=== PATIENT | female | born 1945 | race Caucasian/White ===

== ENCOUNTER → 2016-10-04 | Outpatient (CLI) | payer MEDICARE, MEDICAID ==
[~2016-10-04] MED LIST: ACIPHEX20 MG PO; ALBUTEROL0.83 MG/ML IH; ALDACTONE 25MG25 M1 PO; ALLEGRA ALLERG180 MG PO; ALLOPURINOL100 MG PO; ALPRAZOLAM PO; ALPRAZOLAM0.25 M1 PO; ASPIRIN 32325 MG/TAB PO; ASPIRIN 81M81 MG/TA2 PO; ASPIRIN E.C. 8181 MG PO; ATIVAN 0.50.5 MG/TAB PO; ATORVASTATIN; ATROVENT I0.2 MG/1 M IH; ATROVENT INHALE14 GM IH; AURALGAN EAR DR15 ML OT; BREO IH; CEFTIN 250250 MG/TAB PO; CEFTIN500 MG PO; CEPHALEXIN500 M1 PO; COLACE 100100 MG/CAP PO; COREG 3.123.125 MG/T PO; COREG3.125 MG PO; COREG6.25 MG PO; COZAAR 25MG25 MG/TAB PO; COZAAR 50MG50 MG/TAB PO; CRESTOR5 MG PO; DEXILANT60 MG PO; DIGITEK0.125 MG PO; DIGOXIN0.125 MG PO; DOXEPIN; DOXYCYCLINE 10100 MG PO; DULCOLAX S10 MG/SUPP RC; EAR DROP; EFFIENT10 MG PO; EPLERENONE50 MG PO; ESCITALOPRAM PO; FAMILY PHARMAC0.4 MG PO; FLAGYL500 MG PO; FOLIC ACID 40400 MCG PO; FUROSEMIDE PO; IMDUR 30MG30 MG/TAB PO; INSPRA25 MG PO; IRON325 M1 PO; ISORDIL TITRADO30 MG PO; KLOR-CON M2020 MEQ PO; LANOXIN 0.120.125 MG PO; LANOXIN0.125 MG PO; LASIX 20MG TABL20 MG PO; LASIX 40MG TABL40 MG PO; LEXAPRO20 MG PO; LIPITOR 10MG10 MG PO; LIPITOR 80MG80 MG PO; LIPITOR40 MG PO; LORTAB 5/500 501 TAB PO; MACROBID 1100 MG/CAP PO; MEDI-FIRST ASP325 MG PO; METRONIDAZOLE500 MG PO; MICARDIS 40MG40 MG PO; MICARDIS HCT PO; MICARDIS40 MG PO; MILK OF MA400 MG/52 PO; MIRALAX PA17 GM/Dose PO; MOBIC 7.5MG7.5 MG PO; MOMETASONE FUROA0.1% TP; NEXIUM 40MG40 MG PO; NIASPAN500 MG PO; NITROSTAT0.4 MG/TAB SL; NORCO 325 MG-51 TAB PO; NORCO 325 MG-7.1 TAB; NYSTATIN OR100 MU/ML PO; NYSTATIN POWDER30 GM TP; PERCOCET 325 MG1 TA2 PO; PERCOCET 325 MG1 TAB PO; PLAVIX 75MG TAB75 MG PO; PREDNISONE10 MG PO; PREDNISONE20 MG PO; PREVACID 30MG30 M1 PO; PREVACID 30MG30 MG PO; PRIL40 PO; PRINIVIL2.5 MG PO; PROAIR HFA0.09 MG/AC IH; PROVENTIL0.09 MG/A1 IH; RANEXA 500MG T500 MG PO; REMERON 15M15 MG/TA1 PO; RT SPIRIVA18 MCG IH; SENOKOTXTRA17.2 MG PO; SINGULAIR 110 MG/TAB PO; SINGULAIR10 MG PO; TOPROL PO; TRICOR145 MG PO; TYLENOL 325MG325 MG PO; ULTRAM 50MG TAB50 MG PO; ULTRAM50 MG PO; VASOTEC 2.2.5 MG/TAB PO; VASOTEC10 MG PO; VENTOLIN0.09 MG IH; VITAMIN D1000 IU PO; VYTORIN PO; XANAX .25M0.25 MG/TA PO; XANAX 1MG1 MG PO; XANAX XR1 MG PO; ZESTRIL2.5 MG PO; ZITHROMAX Z PA250 MG PO; ZYLOPRIM 300MG300 MG PO; [UNRECOGNIZED DRUG - REMARK]
== END ==
LOC: COL.RAD 13:55
DX: R13.19 Other dysphagia (principal); M62.89 Other specified disorders of muscle; M25.78 Osteophyte, vertebrae; K21.9 Gastro-esophageal reflux disease without esophagitis; J37.0 Chronic laryngitis

== ENCOUNTER 2016-10-08 14:02 | Emergency (ER) | payer MEDICARE, MEDICAID ==
[2008-10-16 23:26] VITALS: BP 94/48
[~2016-10-08] VITALS: Ht 165.1 cm; Wt 56.4 kg
[~2016-10-08 14:02] MED LIST changes: -MOBIC 7.5MG7.5 MG PO
[2016-10-08 15:24] LABS: VENOUS BLOOD GAS BE 4.8 (-4-4); VENOUS BLOOD GAS SAO2 78.9 % (60-80)
[2016-10-08 15:29] LABS: VENOUS BLOOD GAS SITE VENIPUNCTURE
[2016-10-08 15:35] LABS: BASO % 0.3 % (0.0-2.0); EOS % 0.3 % (0-4.0); GRAN # 8.3 (1.4-6.5); GRAN % 84.6 % (42.2-75.2); LYMPH # 0.7 (1.2-3.4); LYMPH % 7.4 % (20.0-51.0); MEAN CELL VOLUME 97 fl (80.0-100.0); MEAN CORPUSCULAR HGB CONC 34 g/dl (33.0-37.0); MEAN PLATELET VOLUME 10.4 fl (7.4-10.4); MONO # 0.7 (0.1-0.6); PLATELET COUNT 126 K/mm3 (130-400); RED BLOOD COUNT 3.02 M/mm3 (4.10-5.30); REDCELL DISTRIBUTION WIDTH-CV 13.5 % (11.5-14.5); WHITE BLOOD COUNT 9.8 K/mm3 (4.8-10.8)
[2016-10-08 15:38] LABS: ADJUSTED CALCIUM 9.7 mg/dL (8.4-10.2); ALBUMIN 3.3 gm/dL (3.5-5.0); BILIRUBIN,TOTAL 1.2 mg/dL (0.0-1.0); CALCIUM 9.1 mg/dL (8.4-10.2); CREATININE, serum 1.56 mg/dL (0.52-1.25); HEMATOCRIT 29.2 % (37.0-47.0); HEMOGLOBIN 9.8 g/dl (12.5-16.0); MEAN CORPUSCULAR HEMOGLOBIN 32 pg (27.0-31.0); POTASSIUM 3.4 mmol/L (3.4-5.0); TOTAL PROTEIN 6.6 gm/dL (6.4-8.2)
[2016-10-08 15:50] LABS: TROPONIN-I 0.072 ng/mL (0.000-0.034)
[2016-10-08 15:51] LABS: PH 5 (5-8); URINE APPEARANCE Clear; URINE BACTERIA Many /hpf; URINE BILIRUBIN Negative (NEGATIVE); URINE BLOOD 2+ (NEGATIVE); URINE COLOR Amber; URINE GLUCOSE Negative (NEGATIVE); URINE KETONE Negative (NEGATIVE); URINE UROBILINOGEN Negative (NEGATIVE)
[2016-10-08] MEDS ORDERED: COREG 3.123.125 MG/T PO (17:09)
[2016-10-08] MEDS ORDERED: IMDUR 30MG30 MG/TAB PO (17:09)
[2016-10-08] MEDS ORDERED: COZAAR 25MG25 MG/TAB PO (17:10)
[2016-10-08 20:52] VITALS: TEMP 98
[2016-10-08 21:10] VITALS: BP 80/45; PULSE 89
[2017-04-03] MEDS ORDERED: CRESTOR5 MG PO (10:12)
== END 2016-10-08 21:20 | disposition short-term general hospital (02) ==
LOC: COL.ER 14:02
PROVIDERS: Emergency Medicine
DX: I95.9 Hypotension, unspecified (principal); R79.89 Other specified abnormal findings of blood chemistry; R50.9 Fever, unspecified; R10.84 Generalized abdominal pain; R57.9 Shock, unspecified; I13.0 Hypertensive heart and chronic kidney disease with heart failure and stage 1 through stage 4 chronic kidney disease, or unspecified chronic kidney disease; I50.9 Heart failure, unspecified; N18.9 Chronic kidney disease, unspecified; Z87.891 Personal history of nicotine dependence; J44.9 Chronic obstructive pulmonary disease, unspecified
CPT/HCPCS: J0692; J1200; J1580; J2405; J3010; J3370; J7030; J7040; J7060; Q9967

== ENCOUNTER 2017-01-28 07:26 | Emergency (ER) | payer MEDICARE, MEDICAID ==
[2008-10-16 23:26] VITALS: BP 94/48
[~2017-01-28] VITALS: Ht 160 cm; Wt 59.5 kg
[2017-01-28 07:27] VITALS: TEMP 99
[2017-01-28 08:11] LABS: BASO % 0.7 % (0.0-2.0); EOS # 0.3 (0.0-0.7); EOS % 4.6 % (0-4.0); GRAN # 3.8 (1.4-6.5); LYMPH % 18.2 % (20.0-51.0); MEAN CELL VOLUME 95 fl (80.0-100.0); MEAN CORPUSCULAR HGB CONC 33 g/dl (33.0-37.0); MEAN PLATELET VOLUME 10.8 fl (7.4-10.4); MONO # 0.5 (0.1-0.6); MONO % 9.3 % (1.7-9.3); PLATELET COUNT 138 K/mm3 (130-400); RED BLOOD COUNT 3.53 M/mm3 (4.10-5.30); REDCELL DISTRIBUTION WIDTH-CV 13.2 % (11.5-14.5); WHITE BLOOD COUNT 5.7 K/mm3 (4.8-10.8)
[2017-01-28 08:14] LABS: HEMATOCRIT 33.5 % (37.0-47.0); HEMOGLOBIN 11.2 g/dl (12.5-16.0); MEAN CORPUSCULAR HEMOGLOBIN 32 pg (27.0-31.0)
[2017-01-28 08:27] LABS: ADJUSTED CALCIUM 9.5 mg/dL (8.4-10.2); ALBUMIN 3.9 gm/dL (3.5-5.0); BILIRUBIN,TOTAL 0.8 mg/dL (0.0-1.0); CALCIUM 9.4 mg/dL (8.4-10.2); CREATININE, serum 1.1 mg/dL (0.52-1.25); POTASSIUM 3.8 mmol/L (3.4-5.0); TOTAL PROTEIN 7.1 gm/dL (6.4-8.2)
[2017-01-28 08:38] LABS: TROPONIN-I 0.026 ng/mL (0.000-0.034)
[2017-01-28 11:07] VITALS: BP 113/55; PULSE 66
[2017-04-03] MEDS ORDERED: CRESTOR5 MG PO (10:12)
== END 2017-01-28 11:13 | disposition home or self-care (01) ==
LOC: COL.ER 07:26
PROVIDERS: Emergency Medicine
DX: R07.9 Chest pain, unspecified (principal); Z45.02 Encounter for adjustment and management of automatic implantable cardiac defibrillator; I13.0 Hypertensive heart and chronic kidney disease with heart failure and stage 1 through stage 4 chronic kidney disease, or unspecified chronic kidney disease; I50.9 Heart failure, unspecified; I25.5 Ischemic cardiomyopathy; J44.9 Chronic obstructive pulmonary disease, unspecified; N18.9 Chronic kidney disease, unspecified

== ENCOUNTER → 2017-02-24 | Outpatient (CLI) | payer MEDICARE, MEDICAID ==
[~2017-02-24] MED LIST changes: +MOBIC 7.5MG7.5 MG PO
== END ==
LOC: MC.RAD 15:00
DX: Z12.31 Encounter for screening mammogram for malignant neoplasm of breast (principal)

== ENCOUNTER 2017-04-07 13:33 | Outpatient (CLI) | payer OTHER, MEDICARE, MEDICAID ==
[2008-10-16 23:26] VITALS: BP 94/48
[~2017-04-07] VITALS: Ht 160 cm; Wt 62.7 kg
[~2017-04-07 13:33] MED LIST changes: -MOBIC 7.5MG7.5 MG PO
[2017-04-07 14:04] VITALS: BP 119/60; PULSE 66
[2017-04-07 15:00] VITALS: BP 110/52; PULSE 60; PULSE 63
[2017-04-07 15:15] VITALS: BP 113/58; PULSE 60
[2017-04-07 15:30] VITALS: BP 95/44; PULSE 59
== END 2017-04-07 16:23 | disposition home or self-care (01) ==
LOC: COL.RAD 13:33
DX: M48.02 Spinal stenosis, cervical region (principal); M50.222 Other cervical disc displacement at C5-C6 level; I65.23 Occlusion and stenosis of bilateral carotid arteries; M54.10 Radiculopathy, site unspecified
CPT/HCPCS: Q9967

== ENCOUNTER 2017-04-21 23:06 | Emergency (ER) | payer MEDICARE, MEDICAID ==
[2008-10-16 23:26] VITALS: BP 94/48
[~2017-04-21] VITALS: Ht 160 cm; Wt 62.7 kg
[2017-04-21 23:13] VITALS: TEMP 98.8
[2017-04-21 23:28] LABS: BASO % 0.6 % (0.0-2.0); EOS # 0.2 (0.0-0.7); EOS % 3.2 % (0-4.0); GRAN # 3.8 (1.4-6.5); GRAN % 59.6 % (42.2-75.2); LYMPH # 1.8 (1.2-3.4); LYMPH % 27.9 % (20.0-51.0); MEAN CELL VOLUME 95 fl (80.0-100.0); MEAN CORPUSCULAR HGB CONC 34 g/dl (33.0-37.0); MEAN PLATELET VOLUME 10.5 fl (7.4-10.4); MONO # 0.5 (0.1-0.6); MONO % 8.4 % (1.7-9.3); PLATELET COUNT 149 K/mm3 (130-400); RED BLOOD COUNT 3.59 M/mm3 (4.10-5.30); REDCELL DISTRIBUTION WIDTH-CV 11.9 % (11.5-14.5); WHITE BLOOD COUNT 6.3 K/mm3 (4.8-10.8)
[2017-04-21 23:29] LABS: HEMATOCRIT 34.2 % (37.0-47.0); HEMOGLOBIN 11.5 g/dl (12.5-16.0); MEAN CORPUSCULAR HEMOGLOBIN 32 pg (27.0-31.0)
[2017-04-21 23:38] LABS: ADJUSTED CALCIUM 9.4 mg/dL (8.4-10.2); ALBUMIN 4.2 gm/dL (3.5-5.0); BILIRUBIN,TOTAL 0.8 mg/dL (0.0-1.0); CALCIUM 9.6 mg/dL (8.4-10.2); CREATININE, serum 1.09 mg/dL (0.52-1.25); POTASSIUM 3.3 mmol/L (3.4-5.0); TOTAL PROTEIN 7.3 gm/dL (6.4-8.2)
[2017-04-21 23:50] LABS: TROPONIN-I 0.023 ng/mL (0.000-0.034)
[2017-04-22 05:36] VITALS: BP 106/56; PULSE 60
== END 2017-04-22 05:36 | disposition home or self-care (01) ==
LOC: COL.ER 23:06
PROVIDERS: Emergency Medicine
DX: R07.89 Other chest pain (principal); I13.0 Hypertensive heart and chronic kidney disease with heart failure and stage 1 through stage 4 chronic kidney disease, or unspecified chronic kidney disease; I50.9 Heart failure, unspecified; I25.10 Atherosclerotic heart disease of native coronary artery without angina pectoris; I25.2 Old myocardial infarction; N18.9 Chronic kidney disease, unspecified; J44.9 Chronic obstructive pulmonary disease, unspecified; Z95.5 Presence of coronary angioplasty implant and graft; Z95.810 Presence of automatic (implantable) cardiac defibrillator; Z79.82 Long term (current) use of aspirin; Z79.02 Long term (current) use of antithrombotics/antiplatelets

== ENCOUNTER 2017-05-19 10:13 | Day surgery (SDC) | payer MEDICARE, MEDICAID ==
[2008-10-16 23:26] VITALS: BP 94/48
[~2017-05-19] VITALS: Ht 160 cm; Wt 60.0 kg
[2017-05-19] VITALS (8 sets, daily range): BP systolic 95–123; BP diastolic 47–72; PULSE 60–67; TEMP 98.3
[2017-05-19 11:25] LABS: MEAN CELL VOLUME 97 fl (80.0-100.0); MEAN CORPUSCULAR HGB CONC 32 g/dl (33.0-37.0); MEAN PLATELET VOLUME 9.8 fl (7.4-10.4); PLATELET COUNT 327 K/mm3 (130-400); RED BLOOD COUNT 3.41 M/mm3 (4.10-5.30); REDCELL DISTRIBUTION WIDTH-CV 11.5 % (11.5-14.5)
[2017-05-19 11:26] LABS: HEMATOCRIT 32.9 % (37.0-47.0); HEMOGLOBIN 10.6 g/dl (12.5-16.0); MEAN CORPUSCULAR HEMOGLOBIN 31 pg (27.0-31.0)
[2017-05-19 11:31] LABS: INR 1.1 (0.8-3.0); PROTHROMBIN TIME 12.6 SECONDS (9.7-12.8)
[2017-05-19 11:33] LABS: CALCIUM 9.6 mg/dL (8.4-10.2); CREATININE, serum 1.2 mg/dL (0.52-1.25); POTASSIUM 3.3 mmol/L (3.4-5.0)
[2017-05-19] MEDS ORDERED: MOBIC 7.5MG7.5 MG PO (11:47)
== END 2017-05-19 15:57 | disposition home or self-care (01) ==
LOC: COL.CAR 10:13 → EUO 10:13
PROVIDERS: Internal Medicine Interventional Cardiology
DX: Z45.02 Encounter for adjustment and management of automatic implantable cardiac defibrillator (principal); I50.22 Chronic systolic (congestive) heart failure; I25.10 Atherosclerotic heart disease of native coronary artery without angina pectoris; I25.2 Old myocardial infarction; I42.0 Dilated cardiomyopathy; E78.5 Hyperlipidemia, unspecified; J43.9 Emphysema, unspecified; I73.9 Peripheral vascular disease, unspecified; Z79.01 Long term (current) use of anticoagulants
CPT/HCPCS: C1721; J0690; J2250; J3010; J7030

== ENCOUNTER 2017-05-20 22:04 | Emergency (ER) | payer MEDICARE, MEDICAID ==
[2008-10-16 23:26] VITALS: BP 94/48
[~2017-05-20] VITALS: Ht 160 cm; Wt 60.0 kg
[~2017-05-20 22:04] MED LIST changes: +MOBIC 7.5MG7.5 MG PO
[2017-05-20 22:10] VITALS: TEMP 99.5
[2017-05-21 00:09] VITALS: BP 115/51; PULSE 68
== END 2017-05-21 00:14 | disposition home or self-care (01) ==
LOC: COL.ER 22:04
DX: Z48.812 Encounter for surgical aftercare following surgery on the circulatory system (principal); I25.10 Atherosclerotic heart disease of native coronary artery without angina pectoris; E78.00 Pure hypercholesterolemia, unspecified; F32.9 Major depressive disorder, single episode, unspecified; Z79.82 Long term (current) use of aspirin; Z79.02 Long term (current) use of antithrombotics/antiplatelets

== ENCOUNTER → 2017-06-30 | Outpatient (CLI) | payer MEDICARE, MEDICAID | LOC: COL.RAD 15:00 | DX: R91.8 Other nonspecific abnormal finding of lung field (principal); R59.0 Localized enlarged lymph nodes ==

== ENCOUNTER → 2017-11-06 | Outpatient (CLI) | payer MEDICARE, MEDICAID | LOC: COL.VAS 14:54 | DX: M25.562 Pain in left knee (principal); M25.561 Pain in right knee; M60.9 Myositis, unspecified ==

== ENCOUNTER → 2017-12-11 | Outpatient (CLI) | payer MEDICARE, MEDICAID | LOC: COL.RAD 12:40 | DX: I71.4 Abdominal aortic aneurysm, without rupture (principal); Z95.820 Peripheral vascular angioplasty status with implants and grafts | CPT/HCPCS: Q9967 ==

== ENCOUNTER 2017-12-14 15:11 | Emergency (ER) | payer MEDICARE, MEDICAID ==
[2008-10-16 23:26] VITALS: BP 94/48
[~2017-12-14] VITALS: Ht 167.6 cm; Wt 68.2 kg
[2017-12-14 15:15] VITALS: TEMP 98.6
[2017-12-14 15:49] LABS: BASO # 0.1 (0.0-0.2); BASO % 0.8 % (0.0-2.0); EOS # 0.3 (0.0-0.7); EOS % 4.2 % (0-4.0); GRAN # 4.1 (1.4-6.5); GRAN % 65.6 % (42.2-75.2); LYMPH # 1.4 (1.2-3.4); LYMPH % 22.9 % (20.0-51.0); MEAN CELL VOLUME 99 fl (80.0-100.0); MEAN CORPUSCULAR HGB CONC 33 g/dl (33.0-37.0); MEAN PLATELET VOLUME 10.1 fl (7.4-10.4); MONO # 0.4 (0.1-0.6); MONO % 6.3 % (1.7-9.3); PLATELET COUNT 173 K/mm3 (130-400); RED BLOOD COUNT 3.53 M/mm3 (4.10-5.30); REDCELL DISTRIBUTION WIDTH-CV 13.1 % (11.5-14.5)
[2017-12-14 15:52] LABS: PROTHROMBIN TIME 11.7 SECONDS (9.7-12.8)
[2017-12-14 15:54] LABS: HEMATOCRIT 35.1 % (37.0-47.0); HEMOGLOBIN 11.5 g/dl (12.5-16.0); MEAN CORPUSCULAR HEMOGLOBIN 33 pg (27.0-31.0)
[2017-12-14 15:57] LABS: ALBUMIN 4.1 gm/dL (3.5-5.0); BILIRUBIN,TOTAL 0.6 mg/dL (0.0-1.0); CALCIUM 9.6 mg/dL (8.4-10.2); CREATININE, serum 1.35 mg/dL (0.52-1.25); POTASSIUM 4.1 mmol/L (3.4-5.0); TOTAL PROTEIN 7.8 gm/dL (6.4-8.2)
[2017-12-14 16:09] LABS: TROPONIN-I 0.014 ng/mL (0.000-0.034)
[2017-12-14 17:24] LABS: COLLECTION METHOD CLEAN CATCH
[2017-12-14 17:31] LABS: PH 7 (5-8); SQUAMOUS EPITHELIAL 0-2 /hpf; URINE APPEARANCE Clear; URINE BACTERIA Rare /hpf; URINE BILIRUBIN Negative (NEGATIVE); URINE BLOOD Negative (NEGATIVE); URINE COLOR Straw; URINE GLUCOSE Negative (NEGATIVE); URINE KETONE Negative (NEGATIVE); URINE LEUKOCYTE ESTERASE Negative (NEGATIVE); URINE NITRATE Negative (NEGATIVE); URINE PROTEIN(semi-quant) Negative (NEGATIVE); URINE RBC 0-2 /hpf; URINE UROBILINOGEN Negative (NEGATIVE)
[2017-12-14 18:24] VITALS: BP 103/50; PULSE 93
== END 2017-12-14 18:23 | disposition home or self-care (01) ==
LOC: COL.ER 15:11
PROVIDERS: Emergency Medicine
DX: F41.9 Anxiety disorder, unspecified (principal); R07.9 Chest pain, unspecified; H53.8 Other visual disturbances; I11.0 Hypertensive heart disease with heart failure; I50.9 Heart failure, unspecified; I25.10 Atherosclerotic heart disease of native coronary artery without angina pectoris; J44.9 Chronic obstructive pulmonary disease, unspecified; Z90.89 Acquired absence of other organs; Z90.49 Acquired absence of other specified parts of digestive tract; Z90.710 Acquired absence of both cervix and uterus; Z95.5 Presence of coronary angioplasty implant and graft; Z95.0 Presence of cardiac pacemaker; Z87.891 Personal history of nicotine dependence; Z79.82 Long term (current) use of aspirin; Z79.02 Long term (current) use of antithrombotics/antiplatelets
CPT/HCPCS: J2060; J7040

== ENCOUNTER → 2017-12-26 | Outpatient (CLI) | payer MEDICARE, MEDICAID | LOC: COL.RAD 10:28 | DX: N39.0 Urinary tract infection, site not specified (principal); K57.30 Diverticulosis of large intestine without perforation or abscess without bleeding; Z98.0 Intestinal bypass and anastomosis status ==

== ENCOUNTER 2018-03-16 22:45 | Emergency (ER) | payer MEDICARE, MEDICAID ==
[2008-10-16 23:26] VITALS: BP 94/48
[~2018-03-16] VITALS: Ht 167.6 cm; Wt 70.0 kg
[2018-03-16 22:51] VITALS: TEMP 97.3
[2018-03-16 23:13] LABS: BASO % 0.6 % (0.0-2.0); EOS # 0.2 (0.0-0.7); EOS % 3.2 % (0-4.0); GRAN # 3.7 (1.4-6.5); GRAN % 58.7 % (42.2-75.2); HEMOGLOBIN 10.3 g/dl (12.5-16.0); LYMPH # 1.8 (1.2-3.4); LYMPH % 29.5 % (20.0-51.0); MEAN CELL VOLUME 99 fl (80.0-100.0); MEAN CORPUSCULAR HEMOGLOBIN 33 pg (27.0-31.0); MEAN CORPUSCULAR HGB CONC 33 g/dl (33.0-37.0); MEAN PLATELET VOLUME 10.4 fl (7.4-10.4); MONO # 0.5 (0.1-0.6); MONO % 7.7 % (1.7-9.3); PLATELET COUNT 168 K/mm3 (130-400); RED BLOOD COUNT 3.14 M/mm3 (4.10-5.30)
[2018-03-16 23:18] LABS: PROTHROMBIN TIME 11.4 SECONDS (9.7-12.8)
[2018-03-16] MEDS ORDERED: PERCOCET 325 MG1 TAB PO (23:19)
[2018-03-16 23:23] LABS: ALBUMIN 3.8 gm/dL (3.5-5.0); BILIRUBIN,TOTAL 0.3 mg/dL (0.0-1.0); CALCIUM 9.1 mg/dL (8.4-10.2); CREATININE, serum 1.56 mg/dL (0.52-1.25); POTASSIUM 3.8 mmol/L (3.4-5.0); TOTAL PROTEIN 7.3 gm/dL (6.4-8.2)
[2018-03-16 23:35] LABS: TROPONIN-I 0.019 ng/mL (0.000-0.034)
[2018-03-17 00:13] VITALS: BP 110/70; PULSE 68
== END 2018-03-17 00:06 | disposition home or self-care (01) ==
LOC: COL.ER 22:45
PROVIDERS: Emergency Medicine
DX: M54.9 Dorsalgia, unspecified (principal); R60.0 Localized edema; I11.0 Hypertensive heart disease with heart failure; I50.9 Heart failure, unspecified; I25.10 Atherosclerotic heart disease of native coronary artery without angina pectoris; J44.9 Chronic obstructive pulmonary disease, unspecified; F41.9 Anxiety disorder, unspecified; Z95.5 Presence of coronary angioplasty implant and graft; Z95.0 Presence of cardiac pacemaker; Z90.49 Acquired absence of other specified parts of digestive tract; Z90.710 Acquired absence of both cervix and uterus; Z90.89 Acquired absence of other organs; Z79.02 Long term (current) use of antithrombotics/antiplatelets; Z79.82 Long term (current) use of aspirin

== ENCOUNTER 2018-04-29 22:29 | Emergency (ER) | payer MEDICARE, MEDICAID ==
[2008-10-16 23:26] VITALS: BP 94/48
[~2018-04-29] VITALS: Ht 167.6 cm; Wt 68.2 kg
[2018-04-29 22:36] VITALS: TEMP 98
[2018-04-29 23:49] LABS: COLLECTION METHOD CLEAN CATCH
[2018-04-29 23:55] LABS: MUCOUS Present /lpf; PH 6 (5-8); SQUAMOUS EPITHELIAL 0-2 /hpf; URINE APPEARANCE Clear; URINE BACTERIA None Seen /hpf; URINE BILIRUBIN Negative (NEGATIVE); URINE BLOOD Negative (NEGATIVE); URINE COLOR Yellow; URINE GLUCOSE Negative (NEGATIVE); URINE KETONE Negative (NEGATIVE); URINE LEUKOCYTE ESTERASE Trace (NEGATIVE); URINE NITRATE Negative (NEGATIVE); URINE PROTEIN(semi-quant) Negative (NEGATIVE); URINE RBC 0-2 /hpf
[2018-04-30 00:40] VITALS: BP 138/75; PULSE 62
== END 2018-04-30 00:40 | disposition home or self-care (01) ==
LOC: COL.ER 22:29
PROVIDERS: Emergency Medicine
DX: S20.212A Contusion of left front wall of thorax, initial encounter (principal); N39.0 Urinary tract infection, site not specified; R10.9 Unspecified abdominal pain; I11.0 Hypertensive heart disease with heart failure; I50.9 Heart failure, unspecified; I25.10 Atherosclerotic heart disease of native coronary artery without angina pectoris; J44.9 Chronic obstructive pulmonary disease, unspecified; F41.9 Anxiety disorder, unspecified; G89.29 Other chronic pain; M54.9 Dorsalgia, unspecified; Z90.49 Acquired absence of other specified parts of digestive tract; Z90.710 Acquired absence of both cervix and uterus; Z90.89 Acquired absence of other organs; Z95.0 Presence of cardiac pacemaker; Z95.5 Presence of coronary angioplasty implant and graft; Z88.0 Allergy status to penicillin; Z88.1 Allergy status to other antibiotic agents; Z88.2 Allergy status to sulfonamides; Z88.8 Allergy status to other drugs, medicaments and biological substances; Z79.82 Long term (current) use of aspirin; Z79.02 Long term (current) use of antithrombotics/antiplatelets; Z87.891 Personal history of nicotine dependence; W19.XXXA Unspecified fall, initial encounter
CPT/HCPCS: A9284

== ENCOUNTER → 2018-05-04 | Outpatient (CLI) | payer MEDICARE, MEDICAID | LOC: COL.RAD 10:12 | DX: R07.81 Pleurodynia (principal); R10.9 Unspecified abdominal pain ==

== ENCOUNTER 2018-09-22 10:20 | Emergency (ER) | payer MEDICARE, MEDICAID ==
[2008-10-16 23:26] VITALS: BP 94/48
[~2018-09-22] VITALS: Ht 165.1 cm; Wt 69.5 kg
[2018-09-22 10:23] VITALS: TEMP 97.8
[2018-09-22 11:10] VITALS: BP 97/55; PULSE 64
== END 2018-09-22 11:14 | disposition home or self-care (01) ==
LOC: COL.ER 10:20
DX: S63.502A Unspecified sprain of left wrist, initial encounter (principal); Z79.02 Long term (current) use of antithrombotics/antiplatelets; Z79.82 Long term (current) use of aspirin; W19.XXXA Unspecified fall, initial encounter; Y92.009 Unspecified place in unspecified non-institutional (private) residence as the place of occurrence of the external cause

== ENCOUNTER → 2018-10-22 | Outpatient (CLI) | payer MEDICARE, MEDICAID | LOC: COL.LAB 15:23 | DX: R07.89 Other chest pain (principal) ==

== ENCOUNTER → 2018-10-24 | Outpatient (CLI) | payer MEDICARE, MEDICAID | LOC: COL.RAD 15:25 | DX: I71.4 Abdominal aortic aneurysm, without rupture (principal) ==

== ENCOUNTER 2019-03-29 03:26 | Emergency (ER) | payer MEDICARE, MEDICAID ==
[2008-10-16 23:26] VITALS: BP 94/48
[~2019-03-29] VITALS: Ht 157.5 cm; Wt 54.5 kg
[2019-03-29 03:42] VITALS: BP 112/53; TEMP 98.7
[2019-03-29 04:20] LABS: BASO # 0.1 (0.0-0.2); BASO % 0.7 % (0.0-2.0); EOS # 0.3 (0.0-0.7); EOS % 2.5 % (0-4.0); GRAN # 7.7 (1.4-6.5); LYMPH # 1.8 (1.2-3.4); LYMPH % 17.2 % (20.0-51.0); MEAN CELL VOLUME 101 fl (80.0-100.0); MEAN CORPUSCULAR HEMOGLOBIN 33 pg (27.0-31.0); MEAN CORPUSCULAR HGB CONC 33 g/dl (33.0-37.0); MEAN PLATELET VOLUME 10.3 fl (7.4-10.4); MONO # 0.8 (0.1-0.6); MONO % 7.1 % (1.7-9.3); PLATELET COUNT 196 K/mm3 (130-400); RED BLOOD COUNT 3.67 M/mm3 (4.10-5.30); REDCELL DISTRIBUTION WIDTH-CV 13.2 % (11.5-14.5)
[2019-03-29 04:21] LABS: HEMATOCRIT 36.9 % (37.0-47.0)
[2019-03-29 04:30] LABS: ALBUMIN 4.3 gm/dL (3.5-5.0); BILIRUBIN,TOTAL 0.6 mg/dL (0.0-1.0); CALCIUM 10.2 mg/dL (8.4-10.2); CREATININE, serum 1.6 (0.52-1.25); POTASSIUM 3.9 mmol/L (3.4-5.0)
[2019-03-29 04:42] LABS: TROPONIN-I 0.014 ng/mL (0.000-0.035)
[2019-03-29 05:57] LABS: COLLECTION METHOD CLEAN CATCH
[2019-03-29 06:27] LABS: HYALINE CAST >12 /lpf; MUCOUS Present /lpf; PH 5 (5-8); SQUAMOUS EPITHELIAL 0-2 /hpf; URINE APPEARANCE Hazy; URINE BACTERIA Many /hpf; URINE BILIRUBIN Negative (NEGATIVE); URINE BLOOD Negative (NEGATIVE); URINE COLOR Yellow; URINE GLUCOSE Negative (NEGATIVE); URINE KETONE Negative (NEGATIVE); URINE LEUKOCYTE ESTERASE Trace (NEGATIVE); URINE NITRATE Negative (NEGATIVE); URINE PROTEIN(semi-quant) Negative (NEGATIVE); URINE RBC 0-2 /hpf; URINE UROBILINOGEN Negative (NEGATIVE)
[2019-03-29 06:56] VITALS: PULSE 60
== END 2019-03-29 07:03 | disposition home or self-care (01) ==
LOC: COL.ER 03:26
PROVIDERS: Emergency Medicine
DX: R10.84 Generalized abdominal pain (principal); I25.10 Atherosclerotic heart disease of native coronary artery without angina pectoris; I50.9 Heart failure, unspecified; I73.9 Peripheral vascular disease, unspecified; G89.29 Other chronic pain; M54.9 Dorsalgia, unspecified; J44.9 Chronic obstructive pulmonary disease, unspecified; Z87.891 Personal history of nicotine dependence; Z90.49 Acquired absence of other specified parts of digestive tract; Z90.710 Acquired absence of both cervix and uterus; Z79.02 Long term (current) use of antithrombotics/antiplatelets; Z79.82 Long term (current) use of aspirin
CPT/HCPCS: J0500

== ENCOUNTER 2019-07-29 16:28 | Emergency (ER) | payer MEDICARE, MEDICAID ==
[2008-10-16 23:26] VITALS: BP 94/48
[~2019-07-29] VITALS: Ht 162.6 cm; Wt 72.3 kg
[2019-07-29 16:32] VITALS: TEMP 97.2
[2019-07-29 16:57] LABS: BASO % 0.6 % (0.0-2.0); EOS # 0.2 (0.0-0.7); EOS % 3.1 % (0-4.0); GRAN # 4.2 (1.4-6.5); GRAN % 65.4 % (42.2-75.2); HEMOGLOBIN 11.5 g/dl (12.5-16.0); LYMPH # 1.5 (1.2-3.4); LYMPH % 23.6 % (20.0-51.0); MEAN CELL VOLUME 100 fl (80.0-100.0); MEAN CORPUSCULAR HEMOGLOBIN 33 pg (27.0-31.0); MEAN CORPUSCULAR HGB CONC 33 g/dl (33.0-37.0); MEAN PLATELET VOLUME 11.1 fl (7.4-10.4); MONO # 0.5 (0.1-0.6); PLATELET COUNT 155 K/mm3 (130-400); REDCELL DISTRIBUTION WIDTH-CV 13.7 % (11.5-14.5)
[2019-07-29 16:58] LABS: HEMATOCRIT 35.1 % (37.0-47.0)
[2019-07-29 17:03] LABS: PROTHROMBIN TIME 11.5 SECONDS (9.7-12.8)
[2019-07-29 17:23] LABS: BILIRUBIN,TOTAL 0.6 mg/dL (0.0-1.0); CALCIUM 9.7 mg/dL (8.4-10.2); CREATININE, serum 1.21 (0.52-1.25); POTASSIUM 4.7 mmol/L (3.4-5.0); TOTAL PROTEIN 7.2 gm/dL (6.4-8.2)
[2019-07-29 17:33] LABS: TROPONIN-I 0.016 ng/mL (0.000-0.035)
[2019-07-29] MEDS ORDERED: PREDNISONE20 MG PO (18:43)
[2019-07-29 19:37] VITALS: BP 120/76; PULSE 73
== END 2019-07-29 19:37 | disposition home or self-care (01) ==
LOC: COL.ER 16:28
PROVIDERS: Emergency Medicine
DX: J44.1 Chronic obstructive pulmonary disease with (acute) exacerbation (principal); R07.89 Other chest pain; I10 Essential (primary) hypertension; I11.0 Hypertensive heart disease with heart failure; I50.9 Heart failure, unspecified; Z90.89 Acquired absence of other organs; Z90.49 Acquired absence of other specified parts of digestive tract; Z90.710 Acquired absence of both cervix and uterus; Z95.5 Presence of coronary angioplasty implant and graft; Z95.0 Presence of cardiac pacemaker; Z79.02 Long term (current) use of antithrombotics/antiplatelets; Z79.82 Long term (current) use of aspirin
CPT/HCPCS: J7512

== ENCOUNTER 2019-08-27 12:53 | Day surgery (SDC) | payer MEDICARE, MEDICAID ==
[2008-10-16 23:26] VITALS: BP 94/48
[~2019-08-27] VITALS: Ht 157.5 cm; Wt 71.0 kg
[2019-08-27] MEDS ORDERED: ACIPHEX20 MG PO (13:14)
[2019-08-27] MEDS ORDERED: SINGULAIR 110 MG/TAB PO (13:14)
[2019-08-27] MEDS ORDERED: CRESTOR5 MG PO (13:16)
[2019-08-27] MEDS ORDERED: COZAAR 25MG25 MG/TAB PO (13:20)
[2019-08-27 13:48] VITALS: BP 123/62; PULSE 74; TEMP 96.9
[2019-08-27 14:56] VITALS: BP 110/61; PULSE 64; TEMP 97.8
--- NOTE | 2019-08-27 14:56 | NUR ---
Pt to GI bay 6 via cart from ENDO. Pt drowsy, but awake. Pt ambulates to recliner with stand by assistance x2. Life partner in room. Warm blanket provided. VSS. Pepsi given per pt request. into talk with pt. Call light within reach.
[2019-08-27 15:00] VITALS: BP 116/72; PULSE 61
--- NOTE | 2019-08-27 15:00 | NUR ---
Pt continues to rest. Pt denies pain or nausea. Tolerating po fluids without difficulties.
[2019-08-27 15:15] VITALS: BP 122/49; PULSE 63
--- NOTE | 2019-08-27 15:15 | NUR ---
Pt visiting with . Denies needs. Call light within reach.
--- NOTE | 2019-08-27 15:25 | NUR ---
Discharge instructions reviewed. Pt voices understanding. IV site discontinued with all parts intact. Pt up to dress. Call light within reach.
--- NOTE | 2019-08-27 15:35 | NUR ---
Pt escorted to private car via wheel chair. Pt accompanied home by her .
== END 2019-08-27 15:35 | disposition home or self-care (01) ==
LOC: SDCO 12:53
DX: K21.9 Gastro-esophageal reflux disease without esophagitis (principal); K22.2 Esophageal obstruction; R09.89 Other specified symptoms and signs involving the circulatory and respiratory systems; R11.10 Vomiting, unspecified; J44.9 Chronic obstructive pulmonary disease, unspecified; M19.90 Unspecified osteoarthritis, unspecified site; F41.9 Anxiety disorder, unspecified; F32.9 Major depressive disorder, single episode, unspecified; M10.9 Gout, unspecified; E78.00 Pure hypercholesterolemia, unspecified; I10 Essential (primary) hypertension; F41.0 Panic disorder [episodic paroxysmal anxiety]; D64.9 Anemia, unspecified; M81.0 Age-related osteoporosis without current pathological fracture; Z88.1 Allergy status to other antibiotic agents; Z88.8 Allergy status to other drugs, medicaments and biological substances; Z88.0 Allergy status to penicillin; Z88.2 Allergy status to sulfonamides; Z79.01 Long term (current) use of anticoagulants; Z79.02 Long term (current) use of antithrombotics/antiplatelets; Z90.49 Acquired absence of other specified parts of digestive tract; Z90.710 Acquired absence of both cervix and uterus; Z87.891 Personal history of nicotine dependence
CPT/HCPCS: J2704; J7030

== ENCOUNTER 2020-04-23 18:23 | Emergency (ER) | payer MEDICARE, MEDICAID ==
[2008-10-16 23:26] VITALS: BP 94/48
[~2020-04-23] VITALS: Ht 157.5 cm; Wt 70.5 kg
[2020-04-23 18:52] LABS: BASO % 0.4 % (0.0-2.0); EOS # 0.2 (0.0-0.7); EOS % 2.2 % (0-4.0); GRAN # 4.7 (1.4-6.5); GRAN % 67.4 % (42.2-75.2); HEMOGLOBIN 10.7 g/dl (12.5-16.0); LYMPH # 1.6 (1.2-3.4); LYMPH % 23.5 % (20.0-51.0); MEAN CELL VOLUME 99 fl (80.0-100.0); MEAN CORPUSCULAR HEMOGLOBIN 32 pg (27.0-31.0); MEAN CORPUSCULAR HGB CONC 33 g/dl (33.0-37.0); MEAN PLATELET VOLUME 10.9 fl (7.4-10.4); MONO # 0.4 (0.1-0.6); MONO % 6.4 % (1.7-9.3); PLATELET COUNT 159 K/mm3 (130-400); RED BLOOD COUNT 3.33 M/mm3 (4.10-5.30); REDCELL DISTRIBUTION WIDTH-CV 13.8 % (11.5-14.5)
[2020-04-23 18:53] LABS: HEMATOCRIT 32.8 % (37.0-47.0)
[2020-04-23 18:56] LABS: PROTHROMBIN TIME 11.5 SECONDS (9.7-12.8)
[2020-04-23 19:03] LABS: ALBUMIN 3.9 gm/dL (3.5-5.0); BILIRUBIN,TOTAL 0.6 mg/dL (0.0-1.0); CALCIUM 9.1 mg/dL (8.4-10.2); CREATININE, serum 1.52 (0.52-1.25); POTASSIUM 3.7 mmol/L (3.4-5.0); TOTAL PROTEIN 7.1 gm/dL (6.4-8.2)
[2020-04-23 19:13] LABS: TROPONIN-I 0.018 ng/mL (0.000-0.035)
[2020-04-23 21:20] VITALS: BP 103/44; PULSE 64
== END 2020-04-23 21:20 | disposition home or self-care (01) ==
LOC: COL.ER 18:23
PROVIDERS: Emergency Medicine
DX: R06.00 Dyspnea, unspecified (principal); I10 Essential (primary) hypertension; Z87.09 Personal history of other diseases of the respiratory system; Z79.02 Long term (current) use of antithrombotics/antiplatelets; Z79.82 Long term (current) use of aspirin
CPT/HCPCS: J1100; J7030; Q9967

== ENCOUNTER → 2020-04-23 | Outpatient (CLI) | payer MEDICARE, MEDICAID ==
[2020-04-23 15:21] LABS: TROPONIN-I 0.016 ng/mL (0.000-0.035)
== END ==
LOC: COL.LAB 08:18
PROVIDERS: Internal Medicine Interventional Cardiology
DX: R07.89 Other chest pain (principal); Z20.828 Contact with and (suspected) exposure to other viral communicable diseases

== ENCOUNTER 2020-07-18 15:51 | Emergency (ER) | payer MEDICARE, MEDICAID ==
[2008-10-16 23:26] VITALS: BP 94/48
[~2020-07-18] VITALS: Ht 157.5 cm; Wt 70.5 kg
[2020-07-18 15:56] VITALS: TEMP 98.3
[2020-07-18 16:29] LABS: BASO % 0.7 % (0.0-2.0); EOS # 0.2 (0.0-0.7); GRAN # 3.8 (1.4-6.5); GRAN % 66.8 % (42.2-75.2); HEMOGLOBIN 10.7 g/dl (12.5-16.0); LYMPH # 1.2 (1.2-3.4); LYMPH % 21.8 % (20.0-51.0); MEAN CELL VOLUME 97 fl (80.0-100.0); MEAN CORPUSCULAR HEMOGLOBIN 32 pg (27.0-31.0); MEAN CORPUSCULAR HGB CONC 33 g/dl (33.0-37.0); MEAN PLATELET VOLUME 11.1 fl (7.4-10.4); MONO # 0.4 (0.1-0.6); MONO % 7.5 % (1.7-9.3); PLATELET COUNT 137 K/mm3 (130-400); RED BLOOD COUNT 3.32 M/mm3 (4.10-5.30); REDCELL DISTRIBUTION WIDTH-CV 13.3 % (11.5-14.5)
[2020-07-18 16:30] LABS: HEMATOCRIT 32.2 % (37.0-47.0)
[2020-07-18 16:38] LABS: CREATININE, serum 1.72 (0.52-1.25); POTASSIUM 3.4 mmol/L (3.4-5.0)
[2020-07-18 18:25] VITALS: BP 133/71; PULSE 67
== END 2020-07-18 18:25 | disposition home or self-care (01) ==
LOC: COL.ER 15:51
PROVIDERS: Emergency Medicine
DX: S00.93XA Contusion of unspecified part of head, initial encounter (principal); I50.9 Heart failure, unspecified; I10 Essential (primary) hypertension; I25.10 Atherosclerotic heart disease of native coronary artery without angina pectoris; J44.9 Chronic obstructive pulmonary disease, unspecified; Z88.0 Allergy status to penicillin; Z88.2 Allergy status to sulfonamides; Z88.1 Allergy status to other antibiotic agents; Z79.02 Long term (current) use of antithrombotics/antiplatelets; Z79.82 Long term (current) use of aspirin; W10.1XXA Fall (on)(from) sidewalk curb, initial encounter; Y92.512 Supermarket, store or market as the place of occurrence of the external cause

== ENCOUNTER 2020-10-03 22:43 | Emergency (ER) | payer MEDICARE, MEDICAID ==
[2008-10-16 23:26] VITALS: BP 94/48
[~2020-10-03] VITALS: Ht 157.5 cm; Wt 68.2 kg
[2020-10-03 22:51] VITALS: TEMP 98
[2020-10-03 23:57] LABS: BASO # 0.1 (0.0-0.2); BASO % 0.9 % (0.0-2.0); EOS # 0.2 (0.0-0.7); EOS % 3.5 % (0-4.0); GRAN # 3.4 (1.4-6.5); GRAN % 59.1 % (42.2-75.2); HEMOGLOBIN 11.3 g/dl (12.5-16.0); LYMPH # 1.8 (1.2-3.4); LYMPH % 30.8 % (20.0-51.0); MEAN CELL VOLUME 98 fl (80.0-100.0); MEAN CORPUSCULAR HEMOGLOBIN 32 pg (27.0-31.0); MEAN CORPUSCULAR HGB CONC 33 g/dl (33.0-37.0); MEAN PLATELET VOLUME 10.6 fl (7.4-10.4); MONO # 0.3 (0.1-0.6); MONO % 5.5 % (1.7-9.3); PLATELET COUNT 168 K/mm3 (130-400); REDCELL DISTRIBUTION WIDTH-CV 13.4 % (11.5-14.5)
[2020-10-03 23:58] LABS: HEMATOCRIT 34.2 % (37.0-47.0)
[2020-10-04 00:07] LABS: ALANINE AMINOTRANSFERASE 13 U/L (4-34); ALKALINE PHOSPHATASE 74 U/L (50-136); ANION GAP 9 mmol/L (7-16); AST,SGOT 24 U/L (15-37); BILIRUBIN,TOTAL 0.4 mg/dL (0.0-1.0); BLOOD UREA NITROGEN 30 mg/dL (7-17); CALCIUM 9.2 mg/dL (8.4-10.2); CARBON DIOXIDE 30 mmol/L (22-30); CHLORIDE 102 mmol/L (98-107); CREATININE, serum 1.57 (0.52-1.25); GLUCOSE 120 mg/dL (74-106); POTASSIUM 3.6 mmol/L (3.4-5.0); SODIUM 140 mmol/L (137-145); TOTAL PROTEIN 7.1 gm/dL (6.4-8.2)
[2020-10-04 00:19] LABS: TROPONIN-I < 0.012 ng/mL (0.000-0.035)
[2020-10-04 00:31] LABS: COLLECTION METHOD CLEAN CATCH
[2020-10-04 00:37] LABS: MUCOUS Present /lpf; PH 5 (5-8); URINE APPEARANCE Cloudy; URINE BACTERIA Many /hpf; URINE BILIRUBIN Negative (NEGATIVE); URINE BLOOD 1+ (NEGATIVE); URINE COLOR Yellow; URINE GLUCOSE Negative (NEGATIVE); URINE KETONE Negative (NEGATIVE); URINE LEUKOCYTE ESTERASE 3+ (NEGATIVE); URINE NITRATE Positive (NEGATIVE); URINE PROTEIN(semi-quant) Negative (NEGATIVE); URINE UROBILINOGEN Negative (NEGATIVE); URINE WBC >50 /hpf
[2020-10-04] MEDS ORDERED: CEPHALEXIN500 M1 PO (01:10)
[2020-10-04 01:40] VITALS: BP 132/70; PULSE 67
== END 2020-10-04 01:40 | disposition home or self-care (01) ==
LOC: COL.ER 22:43
PROVIDERS: Emergency Medicine
DX: D64.9 Anemia, unspecified (principal); N39.0 Urinary tract infection, site not specified; I10 Essential (primary) hypertension; I25.2 Old myocardial infarction; I48.91 Unspecified atrial fibrillation; Z20.822 Contact with and (suspected) exposure to COVID-19; Z95.0 Presence of cardiac pacemaker; Z90.710 Acquired absence of both cervix and uterus; Z98.61 Coronary angioplasty status; Z88.0 Allergy status to penicillin; Z88.1 Allergy status to other antibiotic agents; Z88.2 Allergy status to sulfonamides; Z79.02 Long term (current) use of antithrombotics/antiplatelets; Z79.82 Long term (current) use of aspirin
CPT/HCPCS: J0696

== ENCOUNTER → 2020-10-13 | Outpatient (CLI) | payer MEDICARE, MEDICAID ==
[2020-10-13 11:32] LABS: ARTERIAL BLD GAS O2 SATURATION 95.4 % (92-100); ARTERIAL BLOOD GAS BASE EXCESS 1.7 (-2-2); ARTERIAL BLOOD GAS HCO3 25.8 meq/L (22-26); ARTERIAL BLOOD GAS PCO2 38.8 mmHg (35-45); ARTERIAL BLOOD GAS PO2 76.8 mmHg (80-100); ARTERIAL BLOOD GAS pH 7.44 (7.35-7.45)
[2020-10-13 12:19] LABS: BASO # 0.1 (0.0-0.2); BASO % 0.8 % (0.0-2.0); EOS # 0.2 (0.0-0.7); GRAN # 4.9 (1.4-6.5); GRAN % 65.8 % (42.2-75.2); HEMOGLOBIN 11.8 g/dl (12.5-16.0); LYMPH # 1.7 (1.2-3.4); LYMPH % 22.6 % (20.0-51.0); MEAN CELL VOLUME 98 fl (80.0-100.0); MEAN CORPUSCULAR HEMOGLOBIN 32 pg (27.0-31.0); MEAN CORPUSCULAR HGB CONC 33 g/dl (33.0-37.0); MEAN PLATELET VOLUME 11.1 fl (7.4-10.4); MONO # 0.6 (0.1-0.6); MONO % 7.5 % (1.7-9.3); PLATELET COUNT 153 K/mm3 (130-400); RED BLOOD COUNT 3.65 M/mm3 (4.10-5.30); REDCELL DISTRIBUTION WIDTH-CV 13.6 % (11.5-14.5)
[2020-10-13 12:20] LABS: HEMATOCRIT 35.8 % (37.0-47.0)
== END ==
LOC: COL.PUL 11:07
PROVIDERS: Internal Medicine Pulmonary Disease
DX: D64.9 Anemia, unspecified (principal); R06.02 Shortness of breath

== ENCOUNTER 2021-02-03 22:06 | Emergency (ER) | payer MEDICARE, MEDICAID ==
[2008-10-16 23:26] VITALS: BP 94/48
[~2021-02-03] VITALS: Ht 165.1 cm; Wt 70.5 kg
[2021-02-03 22:21] VITALS: TEMP 98.2
[2021-02-03 22:50] LABS: BASO % 0.5 % (0.0-2.0); EOS # 0.2 (0.0-0.7); EOS % 2.1 % (0-4.0); GRAN # 6.3 (1.4-6.5); GRAN % 73.8 % (42.2-75.2); HEMOGLOBIN 11.2 g/dl (12.5-16.0); LYMPH # 1.5 (1.2-3.4); LYMPH % 17.2 % (20.0-51.0); MEAN CELL VOLUME 95 fl (80.0-100.0); MEAN CORPUSCULAR HEMOGLOBIN 31 pg (27.0-31.0); MEAN CORPUSCULAR HGB CONC 33 g/dl (33.0-37.0); MEAN PLATELET VOLUME 10.5 fl (7.4-10.4); MONO # 0.5 (0.1-0.6); PLATELET COUNT 180 K/mm3 (130-400); RED BLOOD COUNT 3.61 M/mm3 (4.10-5.30); REDCELL DISTRIBUTION WIDTH-CV 14.1 % (11.5-14.5)
[2021-02-03 22:51] LABS: HEMATOCRIT 34.3 % (37.0-47.0)
[2021-02-03 22:54] LABS: PROTHROMBIN TIME 11.1 SECONDS (9.7-12.8)
[2021-02-03 22:57] LABS: PARTIAL THROMBOPLASTIN TIME 28.5 SECONDS (26.0-37.0)
[2021-02-03 23:08] LABS: ALBUMIN 3.9 gm/dL (3.5-5.0); BILIRUBIN,TOTAL 0.4 mg/dL (0.0-1.0); CALCIUM 8.8 mg/dL (8.4-10.2); CREATININE, serum 1.55 (0.52-1.25); POTASSIUM 3.5 mmol/L (3.4-5.0); TOTAL PROTEIN 7.4 gm/dL (6.4-8.2)
[2021-02-03 23:35] LABS: TROPONIN-I 0.015 ng/mL (0.000-0.035)
[2021-02-04 00:26] LABS: COLLECTION METHOD CLEAN CATCH
[2021-02-04 00:34] LABS: BUDDING YEAST Present /hpf; MUCOUS Present /lpf; PH 5 (5-8); SQUAMOUS EPITHELIAL 0-2 /hpf; URINE APPEARANCE Cloudy; URINE BACTERIA Moderate /hpf; URINE BILIRUBIN Negative (NEGATIVE); URINE BLOOD Negative (NEGATIVE); URINE CALCIUM OXALATE CRYSTAL Present /hpf; URINE COLOR Yellow; URINE GLUCOSE Negative (NEGATIVE); URINE KETONE Negative (NEGATIVE); URINE LEUKOCYTE ESTERASE 3+ (NEGATIVE); URINE NITRATE Negative (NEGATIVE); URINE PROTEIN(semi-quant) Negative (NEGATIVE); URINE UROBILINOGEN Negative (NEGATIVE); URINE WBC >50 /hpf
[2021-02-04] MEDS ORDERED: FLAGYL500 MG PO (02:04)
[2021-02-04] MEDS ORDERED: ZOFRAN ODT4 MG PO (02:13)
[2021-02-04 02:15] VITALS: BP 106/63; PULSE 72
[2021-03-03] MEDS ORDERED: DEMADEX 20MG20 M1 PO (10:25)
[2021-03-03] MEDS ORDERED: ACIPHEX20 MG PO (15:12)
[2021-03-03] MEDS ORDERED: ENTRESTO 24 MG1 EACH PO (15:12)
== END 2021-02-04 02:30 | disposition home or self-care (01) ==
LOC: COL.ER 22:06
PROVIDERS: Emergency Medicine
DX: N39.0 Urinary tract infection, site not specified (principal); K57.92 Diverticulitis of intestine, part unspecified, without perforation or abscess without bleeding; D64.9 Anemia, unspecified; I10 Essential (primary) hypertension; Z88.1 Allergy status to other antibiotic agents; Z79.899 Other long term (current) drug therapy
CPT/HCPCS: J2405; J7030

== ENCOUNTER 2021-03-02 11:49 | Emergency (ER) | payer MEDICARE, MEDICAID ==
[2008-10-16 23:26] VITALS: BP 94/48
[~2021-03-02] VITALS: Ht 165.1 cm; Wt 70.5 kg
[~2021-03-02 11:49] MED LIST changes: +ZOFRAN ODT4 MG PO
[2021-03-02 12:59] LABS: BASO # 0.1 (0.0-0.2); BASO % 0.9 % (0.0-2.0); EOS # 0.2 (0.0-0.7); EOS % 2.6 % (0-4.0); GRAN # 3.8 (1.4-6.5); HEMOGLOBIN 11.7 g/dl (12.5-16.0); LYMPH # 1.4 (1.2-3.4); LYMPH % 23.9 % (20.0-51.0); MEAN CELL VOLUME 97 fl (80.0-100.0); MEAN CORPUSCULAR HEMOGLOBIN 32 pg (27.0-31.0); MEAN CORPUSCULAR HGB CONC 33 g/dl (33.0-37.0); MEAN PLATELET VOLUME 11.4 fl (7.4-10.4); MONO # 0.4 (0.1-0.6); MONO % 7.4 % (1.7-9.3); PLATELET COUNT 164 K/mm3 (130-400); REDCELL DISTRIBUTION WIDTH-CV 14.9 % (11.5-14.5)
[2021-03-02 13:02] LABS: HEMATOCRIT 35.7 % (37.0-47.0)
[2021-03-02 13:31] LABS: PROTHROMBIN TIME 11.6 SECONDS (9.7-12.8)
[2021-03-02 13:32] LABS: ALBUMIN 3.8 gm/dL (3.5-5.0); BILIRUBIN,TOTAL 0.5 mg/dL (0.0-1.0); CALCIUM 9.6 mg/dL (8.4-10.2); CREATININE, serum 1.3 (0.52-1.25); POTASSIUM 3.5 mmol/L (3.4-5.0)
[2021-03-02 13:44] LABS: TROPONIN-I 0.016 ng/mL (0.000-0.035)
[2021-03-02 15:46] LABS: COLLECTION METHOD CLEAN CATCH
[2021-03-02 15:55] LABS: PH 6 (5-8); SQUAMOUS EPITHELIAL 0-2 /hpf; URINE APPEARANCE Hazy; URINE BACTERIA Occasional /hpf; URINE BILIRUBIN Negative (NEGATIVE); URINE BLOOD Negative (NEGATIVE); URINE COLOR Yellow; URINE GLUCOSE Negative (NEGATIVE); URINE KETONE Negative (NEGATIVE); URINE LEUKOCYTE ESTERASE 2+ (NEGATIVE); URINE NITRATE Negative (NEGATIVE); URINE PROTEIN(semi-quant) Negative (NEGATIVE); URINE RBC None Seen /hpf; URINE UROBILINOGEN Negative (NEGATIVE)
[2021-03-02 17:38] VITALS: BP 115/47; PULSE 64; TEMP 98.1
[2021-03-03] MEDS ORDERED: DEMADEX 20MG20 M1 PO (10:25)
[2021-03-03] MEDS ORDERED: ENTRESTO 24 MG1 EACH PO (15:12)
[2021-03-03] MEDS ORDERED: ACIPHEX20 MG PO (15:12)
== END 2021-03-02 17:42 | disposition home or self-care (01) ==
LOC: COL.ER 11:49
PROVIDERS: Personal Emergency Response Attendant; Physician Assistant
DX: N39.0 Urinary tract infection, site not specified (principal); I13.0 Hypertensive heart and chronic kidney disease with heart failure and stage 1 through stage 4 chronic kidney disease, or unspecified chronic kidney disease; N18.9 Chronic kidney disease, unspecified; I50.9 Heart failure, unspecified; J44.9 Chronic obstructive pulmonary disease, unspecified; Z99.81 Dependence on supplemental oxygen; I25.10 Atherosclerotic heart disease of native coronary artery without angina pectoris; F41.9 Anxiety disorder, unspecified; M10.9 Gout, unspecified; I25.2 Old myocardial infarction; Z88.1 Allergy status to other antibiotic agents; Z87.891 Personal history of nicotine dependence; Z79.51 Long term (current) use of inhaled steroids; Z79.82 Long term (current) use of aspirin; Z79.899 Other long term (current) drug therapy
CPT/HCPCS: C9113; J0692; J1200; J2405; J2765; J7120

== ENCOUNTER 2021-03-05 07:30 | Outpatient (RCR) | payer MEDICARE, MEDICAID ==
[2008-10-16 23:26] VITALS: BP 94/48
[2021-03-03 10:40] VITALS: BP 96/62; PULSE 60; TEMP 98.3
[2021-03-03 17:56] VITALS: BP 98/54; PULSE 60; TEMP 98.4
[2021-03-04 07:30] VITALS: BP 106/58; PULSE 60; TEMP 98.1
[2021-03-04 18:52] VITALS: BP 105/55; PULSE 63; TEMP 98.8
[~2021-03-05] VITALS: Ht 165.1 cm; Wt 67.7 kg
[~2021-03-05 07:30] MED LIST changes: +DEMADEX 20MG20 M1 PO; +ENTRESTO 24 MG1 EACH PO
[2021-03-05 07:45] VITALS: BP 105/69; PULSE 60; TEMP 98.4
[2021-03-05 18:08] VITALS: BP 110/63; PULSE 72; TEMP 98.1
== END 2021-03-05 18:20 | disposition home or self-care (01) ==
LOC: EUO 07:30
DX: N39.0 Urinary tract infection, site not specified (principal)
CPT/HCPCS: J0692

== ENCOUNTER 2021-10-19 12:25 | Outpatient (CLI) | payer MEDICARE, MEDICAID ==
[2008-10-16 23:26] VITALS: BP 94/48
[2021-10-19] VITALS (8 sets, daily range): BP systolic 89–119; BP diastolic 12–80; PULSE 59–72; TEMP 98–98.1
[~2021-10-19] VITALS: Ht 165.1 cm; Wt 61.8 kg
== END 2021-10-19 15:50 | disposition home or self-care (01) ==
LOC: EUO 12:25
DX: U07.1 COVID-19 (principal); N18.9 Chronic kidney disease, unspecified; I51.9 Heart disease, unspecified; J98.4 Other disorders of lung
CPT/HCPCS: M0247; Q0247

== ENCOUNTER 2021-10-27 04:16 | Emergency (ER) | payer MEDICARE, MEDICAID ==
[2021-10-27 04:29] VITALS: TEMP 97.9
[2021-10-27 05:12] LABS: BASO % 0.3 % (0.0-2.0); EOS # 0.2 K/mm3 (0.0-0.7); GRAN # 3.5 K/mm3 (1.4-6.5); GRAN % 58.5 % (42.2-75.2); HEMOGLOBIN 10.8 g/dl (12.5-16.0); LYMPH # 1.9 K/mm3 (1.2-3.4); LYMPH % 31.6 % (20.0-51.0); MEAN CELL VOLUME 97 fl (80.0-100.0); MEAN CORPUSCULAR HEMOGLOBIN 32 pg (27-31); MEAN CORPUSCULAR HGB CONC 33 g/dl (33.0-37.0); MEAN PLATELET VOLUME 10.8 fl (7.4-10.4); MONO # 0.4 K/mm3 (0.1-0.6); MONO % 6.4 % (1.7-9.3); PLATELET COUNT 142 K/mm3 (130-400); RED BLOOD COUNT 3.36 M/mm3 (4.10-5.30)
[2021-10-27 05:13] LABS: HEMATOCRIT 32.7 % (37.0-47.0)
[2021-10-27 05:38] LABS: ALBUMIN 3.3 gm/dL (3.4-4.8); BILIRUBIN,TOTAL 0.5 mg/dL (0.2-1.2); CALCIUM 8.7 mg/dL (8.4-10.2); CREATININE, serum 1.59 mg/dL (0.57-1.11); POTASSIUM 3.4 mmol/L (3.5-4.5); TOTAL PROTEIN 6.5 gm/dL (6.2-8.1)
[2021-10-27 05:44] LABS: TROPONIN-I 0.019 ng/mL (0.00-0.033)
[2021-10-27 06:06] VITALS: BP 96/69; PULSE 61
== END 2021-10-27 06:19 | disposition home or self-care (01) ==
LOC: COL.ER 04:16
PROVIDERS: Student in an Organized Health Care Education/Training Program
DX: U07.1 COVID-19 (principal); J44.9 Chronic obstructive pulmonary disease, unspecified; I10 Essential (primary) hypertension; I25.2 Old myocardial infarction; I21.4 Non-ST elevation (NSTEMI) myocardial infarction; Z87.891 Personal history of nicotine dependence; Z73.0 Burn-out; Z79.82 Long term (current) use of aspirin; Z79.899 Other long term (current) drug therapy

== ENCOUNTER 2021-12-10 07:00 | Outpatient (RCR) | payer MEDICARE, MEDICAID ==
[2008-10-16 23:26] VITALS: BP 94/48
[2021-12-03 18:19] VITALS: BP 95/48; PULSE 70; TEMP 98.1
[2021-12-04 07:15] VITALS: BP 114/72; PULSE 72; TEMP 97.7
[2021-12-05 07:21] VITALS: BP 106/59; PULSE 78; TEMP 97.6
[2021-12-06 07:13] VITALS: BP 93/56; PULSE 65; TEMP 98
[2021-12-06 18:19] VITALS: BP 98/60; PULSE 75; TEMP 97.9
[2021-12-07 07:18] VITALS: BP 102/69; PULSE 61; TEMP 97.7
[2021-12-07 18:19] VITALS: BP 103/64; PULSE 64; TEMP 98.4
[2021-12-08 07:16] VITALS: BP 94/65; PULSE 68; TEMP 98.1
[2021-12-08 17:19] VITALS: BP 111/72; PULSE 80; TEMP 97.9
--- NOTE | 2021-12-08 17:24 | NUR ---
Verified with pharmacy, ok to administer IV antibiotic at 1700 versus 1800 scheduled timed.
[2021-12-09 07:35] VITALS: BP 102/66; PULSE 85; TEMP 97.8
[2021-12-09 18:24] VITALS: BP 109/47; PULSE 60; TEMP 97.7
[~2021-12-10] VITALS: Ht 165.1 cm; Wt 62.0 kg
[~2021-12-10 07:00] MED LIST changes: +PROTONIX 40MG T40 MG PO
[2021-12-10 07:17] VITALS: BP 119/73; PULSE 91; TEMP 97.7
== END 2021-12-10 07:27 | disposition home or self-care (01) ==
LOC: EUO 07:00
DX: N30.00 Acute cystitis without hematuria (principal)
CPT/HCPCS: J0692

== ENCOUNTER 2022-05-05 20:51 | Emergency (ER) | payer MEDICARE, MEDICAID ==
[~2022-05-05] VITALS: Ht 165.1 cm; Wt 59.1 kg
[2022-05-05 20:58] VITALS: TEMP 96.7
[2022-05-05 21:21] LABS: COLLECTION METHOD CATHETER
[2022-05-05 21:29] LABS: BASO # 0.1 K/mm3 (0.0-0.2); BASO % 0.7 % (0.0-2.0); EOS # 0.1 K/mm3 (0.0-0.7); GRAN # 4.7 K/mm3 (1.4-6.5); GRAN % 67.9 % (42.2-75.2); HEMOGLOBIN 11.4 g/dl (12.5-16.0); LYMPH # 1.5 K/mm3 (1.2-3.4); LYMPH % 22.4 % (20.0-51.0); MEAN CELL VOLUME 99 fl (80.0-100.0); MEAN CORPUSCULAR HEMOGLOBIN 32 pg (27-31); MEAN CORPUSCULAR HGB CONC 33 g/dl (33.0-37.0); MEAN PLATELET VOLUME 10.9 fl (7.4-10.4); MONO # 0.5 K/mm3 (0.1-0.6); MONO % 6.7 % (1.7-9.3); PLATELET COUNT 134 K/mm3 (130-400); RED BLOOD COUNT 3.53 M/mm3 (4.10-5.30); REDCELL DISTRIBUTION WIDTH-CV 13.9 % (11.5-14.5)
[2022-05-05 21:30] LABS: HEMATOCRIT 34.9 % (37.0-47.0)
[2022-05-05 21:33] LABS: MUCOUS Present (NOT PRESENT); SQUAMOUS EPITHELIAL 0-2 /hpf (0-10); URINE BACTERIA Moderate /hpf (NONE SEEN)
[2022-05-05 21:34] LABS: PH 5.5 (5.0-8.5); URINE APPEARANCE Clear (CLEAR/HAZY); URINE BLOOD Negative (NEGATIVE); URINE COLOR Straw (YELLOW); URINE GLUCOSE Negative (NEGATIVE); URINE KETONE Negative (NEGATIVE); URINE NITRATE Negative (NEGATIVE); URINE PROTEIN(semi-quant) Negative (NEGATIVE); URINE UROBILINOGEN 0.2 E.U/dL (0.2-1.0)
[2022-05-05 21:41] LABS: TROPONIN-I 0.022 ng/mL (0.00-0.033)
[2022-05-05 21:57] LABS: ALBUMIN 3.6 gm/dL (3.4-4.8); BILIRUBIN,TOTAL 0.6 mg/dL (0.2-1.2); CALCIUM 9.3 mg/dL (8.4-10.2); CREATININE, serum 1.66 mg/dL (0.57-1.11); POTASSIUM 3.1 mmol/L (3.5-4.5); TOTAL PROTEIN 7.1 gm/dL (6.2-8.1)
[2022-05-05 23:18] VITALS: BP 105/57; PULSE 60
[2022-05-06] MEDS ORDERED: CEFTIN 250250 MG/TAB PO (17:36)
== END 2022-05-05 23:30 | disposition home or self-care (01) ==
LOC: COL.ER 20:51
PROVIDERS: Physician Assistant
DX: I13.0 Hypertensive heart and chronic kidney disease with heart failure and stage 1 through stage 4 chronic kidney disease, or unspecified chronic kidney disease (principal); I50.9 Heart failure, unspecified; N18.9 Chronic kidney disease, unspecified; J84.10 Pulmonary fibrosis, unspecified; J44.9 Chronic obstructive pulmonary disease, unspecified; Z95.5 Presence of coronary angioplasty implant and graft; Z95.0 Presence of cardiac pacemaker; Z20.822 Contact with and (suspected) exposure to COVID-19; Z99.81 Dependence on supplemental oxygen
CPT/HCPCS: J7030

== ENCOUNTER 2022-05-07 18:52 | Observation (INO) | payer MEDICARE, MEDICAID ==
[~2022-05-07] VITALS: Ht 165.1 cm; Wt 60.0 kg
[2022-05-07 19:34] LABS: BASO # 0.1 K/mm3 (0.0-0.2); BASO % 0.7 % (0.0-2.0); EOS # 0.1 K/mm3 (0.0-0.7); EOS % 1.6 % (0.0-4.0); GRAN # 4.9 K/mm3 (1.4-6.5); GRAN % 71.8 % (42.2-75.2); HEMATOCRIT 37.2 % (37.0-47.0); HEMOGLOBIN 12.2 g/dl (12.5-16.0); LYMPH # 1.3 K/mm3 (1.2-3.4); LYMPH % 18.6 % (20.0-51.0); MEAN CELL VOLUME 100 fl (80.0-100.0); MEAN CORPUSCULAR HEMOGLOBIN 33 pg (27-31); MEAN CORPUSCULAR HGB CONC 33 g/dl (33.0-37.0); MEAN PLATELET VOLUME 11.2 fl (7.4-10.4); MONO # 0.5 K/mm3 (0.1-0.6); PLATELET COUNT 147 K/mm3 (130-400); RED BLOOD COUNT 3.74 M/mm3 (4.10-5.30)
[2022-05-07 19:47] LABS: COLLECTION METHOD CATHETER
[2022-05-07 19:52] LABS: URINE APPEARANCE Clear (CLEAR/HAZY); URINE BLOOD TRACE-INTACT (NEGATIVE); URINE COLOR Yellow (YELLOW); URINE GLUCOSE Negative (NEGATIVE); URINE KETONE Negative (NEGATIVE); URINE NITRATE Negative (NEGATIVE); URINE PROTEIN(semi-quant) Negative (NEGATIVE); URINE UROBILINOGEN 0.2 E.U/dL (0.2-1.0)
[2022-05-07 19:59] LABS: MUCOUS Present (NOT PRESENT); SQUAMOUS EPITHELIAL None Seen /hpf (0-10); URINE BACTERIA Rare /hpf (NONE SEEN); URINE RBC 0-2 /hpf (0-2)
[2022-05-07 19:59] LABS: ALBUMIN 3.5 gm/dL (3.4-4.8); BILIRUBIN,TOTAL 0.6 mg/dL (0.2-1.2); CALCIUM 9.3 mg/dL (8.4-10.2); CREATININE, serum 1.55 mg/dL (0.57-1.11); POTASSIUM 3.6 mmol/L (3.5-4.5); TOTAL PROTEIN 7.3 gm/dL (6.2-8.1)
[2022-05-07 20:19] LABS: TROPONIN-I 0.038 ng/mL (0.00-0.033)
[2022-05-07 22:29] VITALS: BP 109/41; PULSE 65; TEMP 97.9
[2022-05-07] MEDS ORDERED: NITROSTAT0.4 MG/TAB SL (22:35)
--- NOTE | 2022-05-07 22:55 | NUR ---
Patient arrived to surgical unit from ER at approximately 2200. Alert and oriented x 4, and able to make needs known. Denies having pain and discomfort. Ambulated to bathroom, gait steady. Continent of bladder. Denies pain and discomfort with urination. Peripheral INT to left forearm. Denies SOB and dyspnea, except with long exertion (going up stairs at house). LS CTA. HRR. Telemetry in place: paced. BSAx4. Reports having diarrhea earlier today. No edema. Voices no questions, needs, or concerns at this time. In bed with call light within reach.
[2022-05-08 03:59] VITALS: BP 105/66; BP 94/39; PULSE 60; TEMP 97.8
[2022-05-08 06:09] LABS: BASO % 0.6 % (0.0-2.0); EOS # 0.1 K/mm3 (0.0-0.7); LYMPH # 1.7 K/mm3 (1.2-3.4); LYMPH % 32.7 % (20.0-51.0); MEAN CELL VOLUME 96 fl (80.0-100.0); MEAN CORPUSCULAR HGB CONC 33 g/dl (33.0-37.0); MEAN PLATELET VOLUME 11.5 fl (7.4-10.4); MONO # 0.3 K/mm3 (0.1-0.6); MONO % 5.5 % (1.7-9.3); PLATELET COUNT 112 K/mm3 (130-400); RED BLOOD COUNT 3.22 M/mm3 (4.10-5.30); REDCELL DISTRIBUTION WIDTH-CV 13.6 % (11.5-14.5)
[2022-05-08 06:14] LABS: HEMATOCRIT 30.9 % (37.0-47.0); HEMOGLOBIN 10.2 g/dl (12.5-16.0); MEAN CORPUSCULAR HEMOGLOBIN 32 pg (27-31)
[2022-05-08 06:25] LABS: CALCIUM 8.8 mg/dL (8.4-10.2); CREATININE, serum 1.42 mg/dL (0.57-1.11); POTASSIUM 4.1 mmol/L (3.5-4.5)
--- NOTE | 2022-05-08 06:30 | NUR ---
Patient reports feeling better since arriving to surgical floor. Has denied abdominal pain and discomfort. Stand by assist for ambulating to bathroom. Recieved IV ABX per orders. Voices no questions, needs, or concerns at this time. In bed with call light within reach.
[2022-05-08 07:26] VITALS: BP 108/52; PULSE 59; TEMP 97.6
--- NOTE | 2022-05-08 08:23 | NUR ---
Patient sitting up in bed this am. Finishing her breakfast without nausea. She does report chronic reflex. Am medication given. She did refuse her heparin, taking ASA & Plavix(she has concerns for a Gi bleed). Patient working with therapy now and ambulating the hallways witha gaitbelt. no walker. Will monitor.
--- NOTE | 2022-05-08 09:31 | NUR ---
Patient resting in bed. Will continue to monitor.
--- NOTE | 2022-05-08 10:18 | NUR ---
SW met with patient to complete intake. Patient provides that she lives in [facility] with her friend/DPOA/HC Patience Rodriguez [phone]. Patient states that she does not utilize DME is independent with ADL's and does not utilize HH services at this time. PCP is Dr. Carranza, and pharmacy is [facility]. Patient states that her plan is to return to her home upon DC. SW will continue to follow. DC plan: home
[2022-05-08 11:12] VITALS: BP 93/48; PULSE 66; TEMP 97.7
--- NOTE | 2022-05-08 11:29 | NUR ---
made aware of hypotension. Bolus orders was verbally given.
--- NOTE | 2022-05-08 15:13 | NUR ---
Patient taken to Ct scan per orders. Patient to room 352 after per hospital administration. She has been resting this afternoon with significant other at bedside.
[2022-05-08 15:55] VITALS: BP 96/39; PULSE 64; TEMP 97.5
[2022-05-08] MEDS ORDERED: OMNICEF 300MG300 MG PO (16:40)
--- NOTE | 2022-05-08 17:56 | NUR ---
Patient up to the bathroom & voided. Ordering dinner. she has rested well this afternoon.
--- NOTE | 2022-05-08 18:31 | NUR ---
Patient sitting up at edge of bed eating dinner. Will report off to nightnurse
[2022-05-08 20:22] VITALS: BP 94/40; PULSE 66; TEMP 98.8
--- NOTE | 2022-05-08 21:00 | NUR ---
PT A&OX4 RESTING IN BED. ASSESSMENT COMPLETE AND MEDS GIVEN. LF IV PATENET. PT DENIES PAIN. TELE IN PLACE. NO NEEDS AT THIS TIME. CALL LIGHT WITHIN REACH.
[2022-05-09 00:36] VITALS: BP 108/45; PULSE 64; TEMP 98.8
[2022-05-09 03:53] VITALS: BP 100/38; PULSE 61; TEMP 98.5
[2022-05-09 06:44] LABS: BASO % 1.1 % (0.0-2.0); EOS # 0.1 K/mm3 (0.0-0.7); EOS % 2.7 % (0.0-4.0); GRAN # 2.3 K/mm3 (1.4-6.5); GRAN % 60.5 % (42.2-75.2); HEMOGLOBIN 10.1 g/dl (12.5-16.0); LYMPH # 1.1 K/mm3 (1.2-3.4); LYMPH % 29.3 % (20.0-51.0); MEAN CELL VOLUME 97 fl (80.0-100.0); MEAN CORPUSCULAR HEMOGLOBIN 33 pg (27-31); MEAN CORPUSCULAR HGB CONC 34 g/dl (33.0-37.0); MEAN PLATELET VOLUME 10.9 fl (7.4-10.4); MONO # 0.2 K/mm3 (0.1-0.6); MONO % 6.1 % (1.7-9.3); PLATELET COUNT 99 K/mm3 (130-400); REDCELL DISTRIBUTION WIDTH-CV 13.7 % (11.5-14.5)
[2022-05-09 07:12] LABS: ALBUMIN 2.9 gm/dL (3.4-4.8); CREATININE, serum 1.38 mg/dL (0.57-1.11); POTASSIUM 4.1 mmol/L (3.5-4.5)
[2022-05-09 07:23] LABS: MAGNESIUM 1.9 mg/dL (1.6-2.6); PHOSPHOROUS 3.2 mg/dL (2.3-4.7)
--- NOTE | 2022-05-09 08:00 | NUR ---
Patient is resting in bed, alert and oriented x 4, wants to go home. Telemetry in place NSR. No complains at this time. Assessment completed, meds provided, no other needs at this time. Call light within reach.
[2022-05-09 08:15] VITALS: BP 96/51; PULSE 62; TEMP 97.6
--- NOTE | 2022-05-09 10:40 | NUR ---
Patient was provided with discharge information, IV ACCESS and telemetry were discontinued. All questions answered.
== END 2022-05-09 11:46 | disposition home or self-care (01) ==
LOC: COL.ER 18:52 → SURG 21:00 → MEDICAL 05-08 15:27
PROVIDERS: Physician Assistant; Student in an Organized Health Care Education/Training Program; ADMIT Internal Medicine
DX: N39.0 Urinary tract infection, site not specified (principal); B96.1 Klebsiella pneumoniae [K. pneumoniae] as the cause of diseases classified elsewhere; B96.20 Unspecified Escherichia coli [E. coli] as the cause of diseases classified elsewhere; R53.1 Weakness; Z16.19 Resistance to other specified beta lactam antibiotics; R53.81 Other malaise; R10.30 Lower abdominal pain, unspecified; Z20.822 Contact with and (suspected) exposure to COVID-19; I21.A1 Myocardial infarction type 2; I50.20 Unspecified systolic (congestive) heart failure; K21.9 Gastro-esophageal reflux disease without esophagitis; N18.9 Chronic kidney disease, unspecified; I13.0 Hypertensive heart and chronic kidney disease with heart failure and stage 1 through stage 4 chronic kidney disease, or unspecified chronic kidney disease; I25.10 Atherosclerotic heart disease of native coronary artery without angina pectoris; I25.2 Old myocardial infarction; Z95.5 Presence of coronary angioplasty implant and graft; M10.9 Gout, unspecified; F41.9 Anxiety disorder, unspecified; J44.9 Chronic obstructive pulmonary disease, unspecified; G47.33 Obstructive sleep apnea (adult) (pediatric); Z79.82 Long term (current) use of aspirin; Z87.891 Personal history of nicotine dependence; Z95.810 Presence of automatic (implantable) cardiac defibrillator
CPT/HCPCS: G0378; J0692; J1644; J7030; J7040

== ENCOUNTER → 2022-07-06 | Outpatient (CLI) | payer MEDICARE, MEDICAID ==
[~2022-07-06] MED LIST changes: +JARDIANCE10 PO; +OMNICEF 300MG300 MG PO
== END ==
LOC: COL.VAS 09:39
DX: I73.9 Peripheral vascular disease, unspecified (principal)

== ENCOUNTER 2022-07-28 14:58 | Day surgery (SDC) | payer MEDICARE, MEDICAID ==
[2008-10-16 23:26] VITALS: BP 94/48
[~2022-07-28] VITALS: Ht 165.1 cm; Wt 58.6 kg
[2022-07-28 14:25] VITALS: BP 123/60; PULSE 69; TEMP 97.1
[2022-07-28 14:40] VITALS: BP 119/71; PULSE 67
[2022-07-28 14:55] VITALS: BP 129/65; PULSE 64
[2022-07-28 15:05] VITALS: BP 137/74; PULSE 72; TEMP 96.9
--- NOTE | 2022-07-28 15:05 | NUR ---
1425-PT TO BAY 2 PER CART FROM ENDO ROOM. REPORT RECEIVED. VS OBTAINED. CALL LIGHT WITHIN REACH. PT TOLERATING SODA AND APPLESAUCE. 1445-DR LIVINGSTON IN ROOM DISCUSSING FINDINGS WITH PT AND HER SO. 1450-IV DC'D AT THIS TIME. 1455-DISCHARGE EDUCATION COMPLETED WITH PT AND HER SO. VERBALIZED UNDERSTANDING OF HOME AND FOLLOW UP CARE. ALL QUESTIONS ANSWERED. DISCHARGE PAPERWORK GIVEN TO PT. 1505-PT OFF UNIT PER WHEELCHAIR. PT DISCHARGED TO HOME WITH SO PER PERSONAL VEHICLE.
[2022-08-02] MEDS ORDERED: SENNA-LAX8.6 MG PO (10:45)
[2022-08-02] MEDS ORDERED: STOOL SOFTENER100 M2 PO (10:45)
== END 2022-07-28 15:05 | disposition home or self-care (01) ==
LOC: SDCO 14:58
DX: K21.9 Gastro-esophageal reflux disease without esophagitis (principal); K44.9 Diaphragmatic hernia without obstruction or gangrene; I73.9 Peripheral vascular disease, unspecified; G47.33 Obstructive sleep apnea (adult) (pediatric); R20.2 Paresthesia of skin; I25.2 Old myocardial infarction; I25.10 Atherosclerotic heart disease of native coronary artery without angina pectoris; I10 Essential (primary) hypertension; Z95.820 Peripheral vascular angioplasty status with implants and grafts; Z98.890 Other specified postprocedural states; Z95.5 Presence of coronary angioplasty implant and graft; Z95.810 Presence of automatic (implantable) cardiac defibrillator
CPT/HCPCS: J2704; J7120

== ENCOUNTER 2022-07-30 10:19 | Emergency (ER) | payer MEDICARE, MEDICAID ==
[~2022-07-30] VITALS: Ht 165.1 cm; Wt 57.7 kg
[2022-07-30] VITALS (128 sets, daily range): BP systolic 160; BP diastolic 68; PULSE 72; TEMP 9.7; O2SAT 91–97
[2022-07-30 10:47] LABS: BASO % 0.8 % (0.0-2.0); EOS # 0.1 K/mm3 (0.0-0.7); EOS % 1.8 % (0.0-4.0); GRAN # 3.5 K/mm3 (1.4-6.5); GRAN % 71.3 % (42.2-75.2); LYMPH % 20.4 % (20.0-51.0); MEAN CELL VOLUME 97 fl (80.0-100.0); MEAN CORPUSCULAR HEMOGLOBIN 32 pg (27-31); MEAN CORPUSCULAR HGB CONC 33 g/dl (33.0-37.0); MEAN PLATELET VOLUME 10.7 fl (7.4-10.4); MONO # 0.3 K/mm3 (0.1-0.6); MONO % 5.7 % (1.7-9.3); PLATELET COUNT 107 K/mm3 (130-400); RED BLOOD COUNT 3.73 M/mm3 (4.10-5.30); REDCELL DISTRIBUTION WIDTH-CV 13.6 % (11.5-14.5)
[2022-07-30 10:48] LABS: HEMATOCRIT 36.2 % (37.0-47.0)
[2022-07-30 10:58] LABS: INR 1.1 (0.8-3.0); PROTHROMBIN TIME 12.3 SECONDS (9.7-12.8)
[2022-07-30 11:04] LABS: ALBUMIN 3.7 gm/dL (3.4-4.8); BILIRUBIN,TOTAL 0.7 mg/dL (0.2-1.2); C-REACTIVE PROTEIN 0.07 mg/dL (0.00-0.50); CALCIUM 9.3 mg/dL (8.4-10.2); CREATININE, serum 1.24 mg/dL (0.57-1.11); POTASSIUM 4.1 mmol/L (3.5-4.5); TOTAL PROTEIN 6.9 gm/dL (6.2-8.1)
[2022-07-30 11:10] LABS: TROPONIN-I 0.01 ng/mL (0.00-0.033)
[2022-07-30 12:11] LABS: COLLECTION METHOD CLEAN CATCH
[2022-07-30 12:22] LABS: SQUAMOUS EPITHELIAL None Seen /hpf (0-10); URINE BACTERIA Rare /hpf (NONE SEEN); URINE RBC 0-2 /hpf (0-2)
[2022-07-30 12:25] LABS: URINE APPEARANCE Hazy (CLEAR/HAZY); URINE BLOOD TRACE-INTACT (NEGATIVE); URINE COLOR Yellow (YELLOW); URINE GLUCOSE 3+ (NEGATIVE); URINE KETONE Negative (NEGATIVE); URINE NITRATE Negative (NEGATIVE); URINE PROTEIN(semi-quant) Negative (NEGATIVE); URINE UROBILINOGEN 0.2 E.U/dL (0.2-1.0)
[2022-08-02] MEDS ORDERED: STOOL SOFTENER100 M2 PO (10:45)
[2022-08-02] MEDS ORDERED: SENNA-LAX8.6 MG PO (10:45)
== END 2022-07-30 13:37 | disposition home or self-care (01) ==
LOC: COL.ER 10:19
PROVIDERS: Nurse Practitioner
DX: R10.13 Epigastric pain (principal); Z87.19 Personal history of other diseases of the digestive system; Z98.890 Other specified postprocedural states
CPT/HCPCS: Q9967

== ENCOUNTER 2022-10-25 04:06 | Emergency (ER) | payer MEDICARE, MEDICAID ==
[~2022-10-25] VITALS: Ht 160 cm; Wt 51.8 kg
[~2022-10-25 04:06] MED LIST changes: +ATROVENT NASAL15 ML NS; +SENNA-LAX8.6 MG PO; +STOOL SOFTENER100 M2 PO
[2022-10-25 04:09] VITALS: BP 124/68; TEMP 97.9
[2022-10-25 04:27] LABS: COLLECTION METHOD CLEAN CATCH
[2022-10-25 04:39] LABS: URINE BACTERIA Moderate /hpf (NONE SEEN)
[2022-10-25 04:43] LABS: URINE APPEARANCE Hazy (CLEAR/HAZY); URINE COLOR Yellow (YELLOW)
[2022-10-25 04:44] LABS: URINE BLOOD Negative (NEGATIVE); URINE GLUCOSE 3+ (NEGATIVE); URINE KETONE Negative (NEGATIVE); URINE NITRATE Positive (NEGATIVE); URINE PROTEIN(semi-quant) Negative (NEGATIVE); URINE UROBILINOGEN 0.2 E.U/dL (0.2-1.0)
[2022-10-25] MEDS ORDERED: CEPHALEXIN500 M1 PO (05:18)
[2022-10-25 05:26] VITALS: PULSE 78
== END 2022-10-25 05:26 | disposition home or self-care (01) ==
LOC: COL.ER 04:06
PROVIDERS: Emergency Medicine
DX: N39.0 Urinary tract infection, site not specified (principal); R51.9 Headache, unspecified; Z88.1 Allergy status to other antibiotic agents; Z88.0 Allergy status to penicillin; Z88.2 Allergy status to sulfonamides; Z28.310 Unvaccinated for COVID-19

== ENCOUNTER → 2023-07-11 | Outpatient (CLI) | payer MEDICARE, MEDICAID | LOC: COL.RAD 08:00 | DX: M25.552 Pain in left hip (principal) | CPT/HCPCS: J0665; J3301; Q9967 ==

== ENCOUNTER → 2023-10-04 | Outpatient (CLI) | payer MEDICARE, MEDICAID | LOC: COL.RAD 13:28 | DX: J32.9 Chronic sinusitis, unspecified (principal) ==